=== PATIENT | male | born 1965 | race Caucasian/White ===

== ENCOUNTER 2017-09-09 16:32 | Emergency (ER) | payer MEDICAID ==
--- NOTE | 2017-09-09 16:38 | EDPHY ---
H & P Constitutional: Initial Vital Signs Temperature (C) 36.6 C 09/09/17 16:42 Heart Rate 61 09/09/17 16:42 Respiratory Rate 19 09/09/17 16:42 Blood Pressure 123/84 H 09/09/17 16:42 O2 Sat (%) 94 09/09/17 16:42 O2 Delivery Mode Room Air Allergies/Adverse Reactions: No Known Allergies Allergy (Unverified 09/09/17 16:40) Home Medications: Medication Instructions Recorded risperiDONE [Risperdal] 09/09/17 Medical Decision Making ED Course/Re-evaluation: CHIEF COMPLAINT: Psychiatric evaluation HISTORY OF PRESENT ILLNESS: This patient is a 52-year-old male with history of major depressive disorder arriving via EMS on M1 hold for evaluation of suicidal ideation. The patient called a crisis center earlier today, and presented there by taxi. He expressed hopelessness and a plan to "give up on the world" by stopping eating. The crisis center summoned EMS and placed the patient on M1 hold. The patient states his last oral intake was leftovers around 5:00am this morning. He plans to stop eating from this point on. He denies recent trauma or illness He has no further complaints. REVIEW OF SYSTEMS: A 10 point review of systems was performed and is negative with the exception of the elements mentioned in the history of present illness. PHYSICAL EXAM: General Appearance: Alert, well hydrated, appropriate, and non-toxic appearing. Head: Atraumatic without scalp tenderness or obvious injury Eyes: Pupils equal, round, reactive to light and accommodation, EOMI, no trauma , no injection. Ears: Clear bilaterally, no perforation, normal landmarks Nose: Atraumatic, no rhinorrhea, clear. Throat: There is no erythema or exudates, no lesions, normal tonsils, mucus membranes moist. Neck: Supple, nontender, no lymphadenopathy. Respiratory: No retractions, no distress, no wheezes, and no accessory muscle use. Lungs are clear to auscultation bilaterally. Cardiovascular: Regular rate and rhythm, no murmurs, rubs, or gallops. Bilateral carotid, radial, dorsalis pedis, and posterior tibial pulses intact. Good capillary refill all extremities. Gastrointestinal: Abdomen is soft, nontender, non-distended, no masses, no rebound, no guarding, no peritoneal signs. Musculoskeletal: Normal active ROM of all extremities, atraumatic. Neurological: Alert, appropriate, and interactive. The patient has normal DTRs and non-focal cranial nerves, motor, sensory, and cerebellar exam. Skin: No rashes, good turgor, no nodules on palpation. Past medical history: Major depressive disorder Past surgical history: Noncontributory Family history: Noncontributory. Social history: Single. Lives in [place]. DIFFERENTIAL DIAGNOSIS: The differential diagnosis for the patient's depression included but was not limited to functional and major depression, situational depression, medication side effect, drugs, and alcohol abuse. MEDICAL DECISION MAKING: Patient is in no acute distress and is hemodynamically stable. I do believe he has major depression. He had a major suicide attempt about 10 years ago which resulted in coma and prolonged treatment. His current plan is to not eat. He has no further plan at this time, but mental health examiners believe he may decide on an alternate plan. I spoke with [facility]. He had a screening completed at the crisis center, and the plan is for medical clearance prior to placement. 18:23 Laboratory studies unremarkable. Tox screen and EtOH negative. The patient is medically cleared for placement. (Ko Cleaning) I took over care of this patient at 7:00 a.m.. This patient is here for suicidal ideation. He is on an M1 hold. He is awaiting placement for psychiatric admission. 10:35 a.m., patient accepted for admission at [facility] under Dr. Alexandre. I have filled out the appropriate transfer paperwork. His remaining emergency department course under my care has been uneventful. He was transferred in stable condition. (Jj Anand) Other Provider: 2100 care assumed by me from Dr. Cleaning pending placement. 23[address] patient signed out to Dr. Granado pending placement. No issues during my care of this patient. (Collins Ch) 8:00 a.m.- The patient remained stable throughout my shift. The case was signed out to the oncoming provider Dr. Anand pending the patient's placement. (Grecia Granado) - Data Points Laboratory Results: Laboratory Results 09/09/17 16:58 09/09/17 16:58 Departure - Departure Disposition: Other Psych, Not Jose Clinical Impression: Suicidal ideation Referrals: Patient,NotPresent [Unknown] - As per Instructions Report Scribed for: Ko Cleaning Report Scribed by: Lynette Jarrett Date of Report: 09/09/17 Time of Report: 16:49
[2017-09-09 17:06] LABS: PLATELET COUNT 166 10^3/uL (150-400)
[2017-09-10 08:20] VITALS: RESP 16
[2017-09-10 12:34] VITALS: BP 110/80; PULSE 65; TEMP 97.7; O2SAT 95
== END 2017-09-10 12:39 ==
LOC: EDUNIT#
DX: R45.851 Suicidal ideations (principal)
CPT/HCPCS: 80305; G0480